=== PATIENT | female | born 1955 | race Caucasian/White ===

== ENCOUNTER 2020-08-14 08:33 | Day surgery (SDC) | payer OTHER ==
[~2020-08-14] VITALS: Ht 175.3 cm; Wt 90.3 kg
[~2020-08-14 08:33] MED LIST: ASPI81EC PO; Aspir 8181 MG PO; BELPHEELB PO; CALGLU500 PO; CALMAGZIN PO; EUTHYROX50 MCG PO; IBUP200; IBUP600 PO; Ibuprofen Ib200 MG PO; LIDO2L MM; LORA1 PO; METO10 PO; MULVITMIND PO; NAPR500 PO; Norvasc10 MG PO; OMEG1CAP30 PO; OMEGA 3-6-9 11200 MG PO; OMEP20ER PO; OXYACE5T PO; PANT40 PO; POTCHL10ER PO; PROACE100 PO; RANI150 PO; RXHYDACE PO; RXONDA4ODT MM; RXPROACE PO; SULTRIDS PO; TRAM50 PO; TRAZ50 PO; Vitamin C100 M1 PO; [UNRECOGNIZED DRUG - OTHER]
--- NOTE | 2020-08-14 10:05 | NUR ---
08/14/20 [email or web address] Kimmy Tavarez SIMETHICONE USED DURING PROCEDURE.
== END 2020-08-14 11:05 | disposition home or self-care (01) ==
LOC: ORSCSDS 08:33
PROVIDERS: Internal Medicine Gastroenterology
PROC: 0DB98ZX Excision of Duodenum, Via Natural or Artificial Opening Endoscopic, Diagnostic (ICD-10-PCS; principal; 2020-08-14 09:45)
PROC: 0DB78ZX Excision of Stomach, Pylorus, Via Natural or Artificial Opening Endoscopic, Diagnostic (ICD-10-PCS; principal; 2020-08-14 09:45)
PROC: 0DBK8ZX Excision of Ascending Colon, Via Natural or Artificial Opening Endoscopic, Diagnostic (ICD-10-PCS; principal; 2020-08-14 09:45)
PROC: 0DBH8ZX Excision of Cecum, Via Natural or Artificial Opening Endoscopic, Diagnostic (ICD-10-PCS; principal; 2020-08-14 09:45)
DX: R19.4 Change in bowel habit (principal); K21.00 Gastro-esophageal reflux disease with esophagitis, without bleeding; D12.0 Benign neoplasm of cecum; D12.2 Benign neoplasm of ascending colon; K57.30 Diverticulosis of large intestine without perforation or abscess without bleeding; K64.1 Second degree hemorrhoids; K44.9 Diaphragmatic hernia without obstruction or gangrene; Z79.899 Other long term (current) drug therapy
CPT/HCPCS: 88305; 88341; 88342; J2704; J7120

== ENCOUNTER → 2022-07-19 | Outpatient (CLI) | payer OTHER | END | disposition home or self-care (01) | LOC: LAB SHORT 17:25 → LAB 17:25 | DX: N39.0 Urinary tract infection, site not specified (principal) | CPT/HCPCS: 87077; 87086; 87186 ==

== ENCOUNTER 2022-10-11 06:07 | Day surgery (SDC) | payer OTHER ==
[~2022-10-11] VITALS: Ht 175.3 cm; Wt 97.0 kg
[2022-10-11] MEDS ORDERED: OLMESARTAN MEDO20 MG PO (06:56)
[2022-10-11] MEDS ORDERED: SYNTHROID75 MCG (06:57)
--- NOTE | 2022-10-11 07:10 | NUR ---
10/11/22 0710 Rosemarie Pandey PRP DRAWN AT [id number], TAKEN TO [facility], OR STAFF NOTIFIED
[2022-10-11 10:30] VITALS: BP 146/70
--- NOTE | 2022-10-11 10:33 | NUR ---
10/11/22 Lida3 Angel Strauss PT TOLERATED EATING AND DRINKING WITH NO ISSUES. PT DENIED NAUSEA. PT STATED PAIN DECREASED FROM 6/10 TO 2/10 POST OXYCODONE ADMINISTRATION. DENIED NAUSEA POST MEDICATION ADMINISTRATION. PT URINATED BEFORE DISCHARGE WITH NO ISSUES. DISCHARGE INSTRUCTIONS GIVEN, ALL QUESTIONS ANSWERED BEFORE DISCHARGE. PT STATED READINESS TO GO HOME.
== END 2022-10-11 10:25 | disposition home or self-care (01) ==
LOC: ORSCSDS 06:07
PROVIDERS: Orthopaedic Surgery
PROC: 0MBM0ZZ Excision of Left Hip Bursa and Ligament, Open Approach (ICD-10-PCS; principal; 2022-10-11 07:30)
PROC: 0LBK0ZZ Excision of Left Hip Tendon, Open Approach (ICD-10-PCS; principal; 2022-10-11 07:30)
DX: M76.02 Gluteal tendinitis, left hip (principal); I10 Essential (primary) hypertension; E03.9 Hypothyroidism, unspecified; E78.5 Hyperlipidemia, unspecified; Z79.899 Other long term (current) drug therapy
CPT/HCPCS: 82947; A9270; J0690; J1100; J1885; J2405; J2704; J2795; J3010; J7120

== ENCOUNTER → 2023-07-29 | Outpatient (CLI) | payer OTHER ==
[~2023-07-29] MED LIST changes: +OLMESARTAN MEDO20 MG PO; +SYNTHROID75 MCG
== END | disposition home or self-care (01) ==
LOC: LAB 09:34 → LAB SHORT 09:34
DX: N39.0 Urinary tract infection, site not specified (principal)
CPT/HCPCS: 87086

== ENCOUNTER → 2023-10-21 | Outpatient (CLI) | payer OTHER | LOC: LAB SHORT 18:18 → LAB 18:18 | DX: R30.0 Dysuria (principal) | CPT/HCPCS: 87086 ==

== ENCOUNTER → 2024-07-31 | Outpatient (CLI) | payer OTHER | LOC: LAB SHORT 16:21 → LAB 16:21 | DX: N39.0 Urinary tract infection, site not specified (principal); R31.9 Hematuria, unspecified | CPT/HCPCS: 87077; 87086; 87186 ==

== ENCOUNTER 2025-01-14 06:14 | Day surgery (SDC) | payer OTHER ==
[~2025-01-14] VITALS: Ht 175.3 cm; Wt 101.5 kg
[2025-01-14] MEDS ORDERED: CeFAZolin Sodium 2,000 MG VIAL ONE (06:25)
[2025-01-14] MEDS ORDERED: TOPROL XL50 M1 PO (06:46)
[2025-01-14] MEDS ORDERED: [UNRECOGNIZED DRUG - OTHER] PO (06:48)
[2025-01-14] MEDS ORDERED: IBUPROFEN200 M1 PO (06:49)
[2025-01-14] MEDS ORDERED: Rocuronium Bromide 10 MG/ML 5ML Injection IV ONE (07:05)
[2025-01-14] MEDS ORDERED: Midazolam HCl 1MG / ML 2ML Vial ONE (07:05)
[2025-01-14] MEDS ORDERED: FentaNYL Citrate 50 MCG/ML 2 ML Injection ONE (07:05)
[2025-01-14] MEDS ORDERED: Bupivacaine 0.5% HCl 5 MG/ML 30MLVIAL INJ ONE ×2 (08:00)
[2025-01-14] MEDS ORDERED: ePHEDrine Sulfate 50 MG/ML 1ML Injection ONE (08:13)
[2025-01-14] MEDS ORDERED: Ondansetron HCl 2 MG / ML 2ML Vial ONE ×2 (08:20→09:55)
[2025-01-14] MEDS ORDERED: Dexamethasone Sod Phos 10 MG/ML 1ML VIAL ONE ×2 (08:20→09:55)
[2025-01-14] MEDS ORDERED: Ketorolac Tromethamine 30mg Vial ONE (08:20)
[2025-01-14] MEDS ORDERED: Sugammadex Sodium 200 MG/2ML SDV (100 MG/ML) ONE (08:39)
--- NOTE | 2025-01-14 09:12 | NUR ---
01/14/[address] GAVE PT FENTANYL IN PACU. I BELIEVE THE DOSE WAS 50MCG. PT WAS PLACED ON OXYGEN VIA NASAL CANNULA SET AT 3L O2 SAT DIPPED TO 89% ON RA. CURRENTLY PT IS 100%, ALSO CURRENTLY AWAKE
--- NOTE | 2025-01-14 09:23 | NUR ---
01/14/25 0923 ENEIDA BENNETT WAITING FOR RAD TO COME DO AN XRAY ORDERED BY DR NICHOLS.
[2025-01-14] MEDS ORDERED: OxyCODONE 5 mg/Acetamin 325 mg TABLET ONE (09:38)
[2025-01-14] MEDS ORDERED: Labetalol HCL 5 MG/ML 4ML Injection (Single Dose) ONE (09:54)
[2025-01-14 09:58] VITALS: BP 134/74
== END 2025-01-14 10:23 | disposition home or self-care (01) ==
LOC: ORSCSDS 06:14
PROVIDERS: Orthopaedic Surgery
PROC: 0LMK0ZZ Reattachment of Left Hip Tendon, Open Approach (ICD-10-PCS; principal; 2025-01-14 07:30)
DX: S76.012A Strain of muscle, fascia and tendon of left hip, initial encounter (principal); I10 Essential (primary) hypertension; E03.9 Hypothyroidism, unspecified; E78.5 Hyperlipidemia, unspecified; Z79.899 Other long term (current) drug therapy; I25.10 Atherosclerotic heart disease of native coronary artery without angina pectoris
CPT/HCPCS: 73502; A9270; C1713; J0690; J1100; J1885; J2250; J2405; J2704; J3010; J7120